=== PATIENT | female | born 1955 | race Caucasian/White ===

== ENCOUNTER 2023-03-12 08:17 | Inpatient (IN) | payer MEDICARE, MEDICAID ==
[~2023-03-12] VITALS: Ht 160 cm; Wt 68.0 kg
[~2023-03-12 08:17] MED LIST: LISI20TA28 PO; PRAV40TA3 PO
[2023-03-12] MEDS ORDERED: normal saline 1000ML IV soln IVB ONE (08:25)
[2023-03-12 09:50] LABS: BILIRUBIN,URINE NEGATIVE (Neg); CLARITY,URINE CLOUDY (Clear); COLOR,URINE YELLOW (Yellow); GLUCOSE, URINE NEGATIVE (Neg); KETONES,URINE NEGATIVE (Neg); LEUKOCYTE ESTERASE ,URINE TRACE (Neg); NITRITES, URINE POSITIVE (Neg); OCCULT BLOOD,URINE NEGATIVE (Neg); PROTEIN,URINE 30 mg/dl (Neg); UROBILINOGEN,URINE 0.2 E.U/dL (0.2-1.0)
[2023-03-12 09:52] LABS: BASOPHILS % (AUTO) 0.4 % (0-1); EOSINOPHILS % (AUTO) 0.4 % (0-6); HEMOGLOBIN 13.2 g/dl (12.0-16.0); LYMPHOCYTES # (AUTO) 0.9 X10'3 (1.1-4.8); MEAN CORPUSCULAR HEMOGLOBIN 30.7 PG (27.0-31.0); MEAN CORPUSCULAR HGB CONC 32.9 g/dL (33.0-36.5); MEAN CORPUSCULAR VOLUME 93.2 FL (78-98); MONOCYTES # (AUTO) 0.4 X10'3 (0-0.9); MONOCYTES % (AUTO) 5.5 % (2-12); NEUTROPHILS # (AUTO) 6.7 X10'3 (1.8-7.7); NEUTROPHILS % (AUTO) 82.7 % (42-75); PLATELET COUNT 379 X10'3 (140-440); WHITE BLOOD COUNT 8.1 X10'3 (4.5-11.0)
[2023-03-12 09:54] LABS: UA COLLECTION TYPE CLN CATCH MIDSTREAM
[2023-03-12 09:58] LABS: BACTERIA,URINE 4+ /HPF (Neg); RBC,URINE 0-2 /HPF (0-2); SQUAMOUS EPITHELIAL CELL,UR MODERATE /LPF (FEW); WBC CLUMPS,URINE FEW /HPF (NEGATIVE)
[2023-03-12] MEDS ORDERED: CefTRIAXone 2gm/D5W 50ml BAG 50 ML IV ONE (10:00)
[2023-03-12 10:07] LABS: ALANINE AMINOTRANSFERASE 12 U/L (12-78); ALBUMIN 2.8 G/DL (3.4-5.0); ALBUMIN/GLOBULIN RATIO 0.8 (1.1-1.5); ALKALINE PHOSPHATASE 93 IU/L (46-116); ANION GAP 8 (8-16); ASPARTATE AMINO TRANSFERASE 20 U/L (10-37); BILIRUBIN,TOTAL 0.4 MG/DL (0.1-1.0); BLOOD UREA NITROGEN 17 MG/DL (7-18); BUN/CREATININE RATIO 18.1 (10.0-20.0); CALCIUM 8.7 MG/DL (8.5-10.1); CHLORIDE 104 MMOL/L (99-107); CREATININE 0.94 MG/DL (0.40-0.90); GLUCOSE 78 MG/DL (70-104); POTASSIUM 4.2 MMOL/L (3.5-5.1); SODIUM 138 MMOL/L (135-145); TOTAL CARBON DIOXIDE 26.2 MMOL/L (24-32); TOTAL PROTEIN 6.5 G/DL (6.4-8.2); eCRCL 48 ML/MIN; eGFR 59 ML/MIN
[2023-03-12 10:13] LABS: MAGNESIUM 1.7 MG/DL (1.5-2.4); PHOSPHORUS 3.7 MG/DL (2.3-4.5); PRO BRAIN NATRIURETIC PEPTIDE 488 PG/ML (0-125)
--- NOTE | 2023-03-12 12:26 | NUR ---
Breaking primary RN .Resident rosa at bedside.
[2023-03-12] MEDS ORDERED: ondansetron/PF 4mg/2ml inj IV PRN (13:00)
[2023-03-12] MEDS ORDERED: LORazepam 1 MG tablet PO PRN (13:00)
[2023-03-12] MEDS: normal saline 1000ml 1,000 ML IV SCH (13:00)
[2023-03-12] MEDS ORDERED: haloperidol lactate 5mg/ml inj IM PRN (13:00)
[2023-03-12] MEDS ORDERED: haloperidol 5mg tablet PO PRN (13:00)
[2023-03-12] MEDS ORDERED: potassium Cl 40MEQ/1/2NS 520ml 520 ML IV PRN (13:00)
[2023-03-12] MEDS ORDERED: magnesium 2GM in 50ml NS 50 ML IV PRN (13:00)
[2023-03-12] MEDS ORDERED: dextrose 50%-water 50ml dispensing syringe IV PRN (13:00)
[2023-03-12] MEDS ORDERED: mag hydrox/Alum hydrox/simeth 30ml oral suspension PO PRN (13:00)
[2023-03-12] MEDS ORDERED: magnesium 4gm in 100ml NS 100 ML IV PRN (13:00)
[2023-03-12] MEDS: thiamine 100mg/ml 2ml inj. IV SCH ×2 (13:10→20:38)
--- NOTE | 2023-03-12 13:34 | NUR ---
I called Dr. Randhawa regarding his order for blood sugar check ACHS. I told him that patient reported she was not diabetic and that glucose chem shows normal glucose level. He agreed to have A1C level checked first before we do blood sugar monitoring.
[2023-03-12 13:45] LABS: URINE AMPHETAMINE SCREEN NEGATIVE (Neg); URINE BARBITUATE SCREEN NEGATIVE (Neg); URINE BENZODIAZEPINES SCREEN NEGATIVE (Neg); URINE CANNABINOID SCREEN POSITIVE (Neg); URINE COCAINE SCREEN NEGATIVE (Neg); URINE METHADONE SCREEN NEGATIVE (Neg); URINE OPIATE SCREEN NEGATIVE (Neg); URINE PHENCYCLIDINE SCREEN NEGATIVE (Neg)
[2023-03-12] MEDS ORDERED: NO HOME MEDS (16:06)
[2023-03-12] MEDS: folic acid 1mg/0.2ml inj IV SCH (18:03)
[2023-03-12] MEDS: LORazepam 2 mg/ml vial IV PRN (18:03)
[2023-03-12] MEDS: docusate sod 100mg capsule PO SCH (20:00)
[2023-03-12] MEDS: K and/or MAG REPLACEMENT MC SCH (20:00)
[2023-03-12 21:30] VITALS: BP 153/83; PULSE 66; RESP 20; TEMP 97.6; O2SAT 94
[2023-03-13] VITALS (7 sets, daily range): BP systolic 135–160; BP diastolic 66–86; PULSE 65–102; RESP 16–20; TEMP 98.1–99.2; O2SAT 93–98
[2023-03-13] MEDS: normal saline 1000ml 1,000 ML IV SCH ×2 (02:20→15:45)
[2023-03-13 05:38] LABS: BASOPHILS % (AUTO) 0.6 % (0-1); EOSINOPHILS # (AUTO) 0.1 X10'3 (0-0.9); EOSINOPHILS % (AUTO) 1.1 % (0-6); LYMPHOCYTES # (AUTO) 1.2 X10'3 (1.1-4.8); LYMPHOCYTES % (AUTO) 19.9 % (21-51); MEAN CORPUSCULAR HEMOGLOBIN 31.2 PG (27.0-31.0); MEAN CORPUSCULAR HGB CONC 33.5 g/dL (33.0-36.5); MEAN CORPUSCULAR VOLUME 93.2 FL (78-98); MEAN PLATELET VOLUME 6.9 FL (7.4-10.4); MONOCYTES # (AUTO) 0.4 X10'3 (0-0.9); MONOCYTES % (AUTO) 6.2 % (2-12); NEUTROPHILS # (AUTO) 4.5 X10'3 (1.8-7.7); NEUTROPHILS % (AUTO) 72.2 % (42-75); PLATELET COUNT 354 X10'3 (140-440); RED BLOOD COUNT 3.86 X10'6 (4.20-5.60); WHITE BLOOD COUNT 6.3 X10'3 (4.5-11.0)
[2023-03-13 06:15] LABS: ALANINE AMINOTRANSFERASE 6 U/L (12-78); ALBUMIN 2.6 G/DL (3.4-5.0); ALBUMIN/GLOBULIN RATIO 0.8 (1.1-1.5); ALKALINE PHOSPHATASE 86 IU/L (46-116); ANION GAP 10 (8-16); ASPARTATE AMINO TRANSFERASE 20 U/L (10-37); BILIRUBIN,TOTAL 0.6 MG/DL (0.1-1.0); BLOOD UREA NITROGEN 18 MG/DL (7-18); BUN/CREATININE RATIO 19.1 (10.0-20.0); CALCIUM 8.9 MG/DL (8.5-10.1); CHLORIDE 104 MMOL/L (99-107); CREATININE 0.94 MG/DL (0.40-0.90); GLUCOSE 65 MG/DL (70-104); SODIUM 139 MMOL/L (135-145); TOTAL CARBON DIOXIDE 24.8 MMOL/L (24-32); TOTAL PROTEIN 5.8 G/DL (6.4-8.2); eCRCL 48 ML/MIN; eGFR 59 ML/MIN
--- NOTE | 2023-03-13 06:23 | NUR ---
Problems reprioritized. Patient report given, questions answered & plan of care reviewed with Cecily LOMBARDO. Addendum: 03/13/23 at 0623 by Yarely North RN Amended: Links added.
--- NOTE | 2023-03-13 06:25 | NUR ---
I have received report from DESTINEE Pritchett and had the opportunity to ask questions and assume patient care. No distress at this time.
[2023-03-13] MEDS: docusate sod 100mg capsule PO SCH ×2 (07:52→20:00)
[2023-03-13] MEDS: multivitamins, therapeutics tablet PO SCH (07:52)
[2023-03-13] MEDS: K and/or MAG REPLACEMENT MC SCH ×2 (07:53→20:00)
[2023-03-13] MEDS: folic acid 1mg/0.2ml inj IV SCH (08:00)
[2023-03-13] MEDS: thiamine 100mg/ml 2ml inj. IV SCH ×2 (08:01→13:45)
[2023-03-13] MEDS: CefTRIAXone 2gm/D5W 50ml BAG 50 ML IV SCH (08:01)
--- NOTE | 2023-03-13 08:08 | NUR ---
PAGER ID: [phone] MESSAGE: Cecily [email or web address]: Patient in rm 4013 B: Benita Mon, jimi we please put a diet order in. (80 character message out of a maximum of 240)
[2023-03-13] MEDS: LORazepam 2 mg/ml vial IV PRN (12:33)
--- NOTE | 2023-03-13 18:28 | NUR ---
Problems reprioritized. Patient report given, questions answered & plan of care reviewed with DESTINEE Gill. No distress at this time.
[2023-03-13] MEDS ORDERED: iohexol 300mg/ml 100ml inj. ONE (20:17)
[2023-03-13] MEDS: heparin, porcine 5000 units/ml vial SQ SCH (20:25)
[2023-03-14] MEDS: normal saline 1000ml 1,000 ML IV SCH ×2 (05:00→21:08)
[2023-03-14 05:53] LABS: BASOPHILS % (AUTO) 0.8 % (0-1); EOSINOPHILS # (AUTO) 0.2 X10'3 (0-0.9); EOSINOPHILS % (AUTO) 2.8 % (0-6); HEMATOCRIT 38.1 % (35.0-45.0); HEMOGLOBIN 12.8 g/dl (12.0-16.0); LYMPHOCYTES # (AUTO) 1.6 X10'3 (1.1-4.8); LYMPHOCYTES % (AUTO) 26.2 % (21-51); MEAN CORPUSCULAR HEMOGLOBIN 31.2 PG (27.0-31.0); MEAN CORPUSCULAR HGB CONC 33.5 g/dL (33.0-36.5); MEAN PLATELET VOLUME 7.7 FL (7.4-10.4); MONOCYTES # (AUTO) 0.5 X10'3 (0-0.9); MONOCYTES % (AUTO) 8.6 % (2-12); NEUTROPHILS # (AUTO) 3.8 X10'3 (1.8-7.7); NEUTROPHILS % (AUTO) 61.6 % (42-75); PLATELET COUNT 357 X10'3 (140-440); RED BLOOD COUNT 4.09 X10'6 (4.20-5.60); WHITE BLOOD COUNT 6.2 X10'3 (4.5-11.0)
[2023-03-14 06:00] VITALS: BP 153/82; PULSE 83; RESP 18; TEMP 98.7
--- NOTE | 2023-03-14 06:20 | NUR ---
Problems reprioritized. Patient report given, questions answered & plan of care reviewed with GRUPO CATALAN.
--- NOTE | 2023-03-14 06:28 | NUR ---
I have received report from DESTINEE Gill and had the opportunity to ask questions and assume patient care. No distress at this time.
[2023-03-14 06:36] LABS: ALANINE AMINOTRANSFERASE 10 U/L (12-78); ALBUMIN 2.7 G/DL (3.4-5.0); ALBUMIN/GLOBULIN RATIO 0.8 (1.1-1.5); ALKALINE PHOSPHATASE 87 IU/L (46-116); ANION GAP 10 (8-16); ASPARTATE AMINO TRANSFERASE 19 U/L (10-37); BILIRUBIN,TOTAL 0.5 MG/DL (0.1-1.0); BLOOD UREA NITROGEN 21 MG/DL (7-18); BUN/CREATININE RATIO 21.9 (10.0-20.0); CALCIUM 8.7 MG/DL (8.5-10.1); CHLORIDE 103 MMOL/L (99-107); CREATININE 0.96 MG/DL (0.40-0.90); GLUCOSE 84 MG/DL (70-104); POTASSIUM 3.9 MMOL/L (3.5-5.1); SODIUM 136 MMOL/L (135-145); TOTAL CARBON DIOXIDE 23.5 MMOL/L (24-32); TOTAL PROTEIN 6.2 G/DL (6.4-8.2); eCRCL 47 ML/MIN; eGFR 58 ML/MIN
[2023-03-14] MEDS: K and/or MAG REPLACEMENT MC SCH ×2 (07:37→20:00)
[2023-03-14] MEDS: multivitamins, therapeutics tablet PO SCH (07:38)
[2023-03-14] MEDS: docusate sod 100mg capsule PO SCH ×2 (07:38→20:00)
[2023-03-14] MEDS: heparin, porcine 5000 units/ml vial SQ SCH ×2 (07:38→20:59)
[2023-03-14 08:00] VITALS: RESP 16; O2SAT 96
[2023-03-14] MEDS: CefTRIAXone 2gm/D5W 50ml BAG 50 ML IV SCH (09:24)
[2023-03-14] MEDS: acetaminophen 325mg tablet PO PRN ×2 (14:38→21:04)
--- NOTE | 2023-03-14 16:00 | NUR ---
I have reviewed and agree with all interventions, assessments performed and documentation by GRUPO Tony.
--- NOTE | 2023-03-14 16:35 | NUR ---
D/c'd BS checks per Resident. Patient is eating and tolerating diet good. No w/d Sx.
[2023-03-14 18:00] VITALS: BP 160/99; PULSE 74; RESP 15; TEMP 98.1; O2SAT 95
--- NOTE | 2023-03-14 18:09 | NUR ---
Problems reprioritized. Patient report given, questions answered & plan of care reviewed with DESTINEE Prater. No distress at this time.
[2023-03-14 20:00] VITALS: RESP 15; O2SAT 95
[2023-03-14 22:00] VITALS: BP 163/94; PULSE 69; RESP 18; TEMP 98.3; O2SAT 94
[2023-03-15] MEDS: normal saline 1000ml 1,000 ML IV SCH ×2 (05:45→21:10)
--- NOTE | 2023-03-15 06:30 | NUR ---
Patient in room ORTHO 4013. I have received report from Bridget FELIPE and had the opportunity to ask questions and assume patient care.
--- NOTE | 2023-03-15 06:33 | NUR ---
Problems reprioritized. Patient report given, questions answered & plan of care reviewed with torrie gordon.
[2023-03-15 07:10] LABS: BASOPHILS # (AUTO) 0.1 X10'3 (0-0.2); BASOPHILS % (AUTO) 0.9 % (0-1); EOSINOPHILS # (AUTO) 0.2 X10'3 (0-0.9); EOSINOPHILS % (AUTO) 2.8 % (0-6); HEMATOCRIT 38.9 % (35.0-45.0); LYMPHOCYTES # (AUTO) 1.1 X10'3 (1.1-4.8); LYMPHOCYTES % (AUTO) 19.5 % (21-51); MEAN CORPUSCULAR HEMOGLOBIN 31.1 PG (27.0-31.0); MEAN CORPUSCULAR HGB CONC 33.6 g/dL (33.0-36.5); MEAN CORPUSCULAR VOLUME 92.7 FL (78-98); MEAN PLATELET VOLUME 7.9 FL (7.4-10.4); MONOCYTES # (AUTO) 0.4 X10'3 (0-0.9); MONOCYTES % (AUTO) 7.8 % (2-12); NEUTROPHILS # (AUTO) 3.8 X10'3 (1.8-7.7); PLATELET COUNT 342 X10'3 (140-440); RED BLOOD COUNT 4.19 X10'6 (4.20-5.60); RED CELL DISTRIBUTION WIDTH 14.7 % (11.5-14.5); WHITE BLOOD COUNT 5.5 X10'3 (4.5-11.0)
[2023-03-15] MEDS: multivitamins, therapeutics tablet PO SCH (07:56)
[2023-03-15] MEDS: heparin, porcine 5000 units/ml vial SQ SCH ×2 (07:57→20:18)
[2023-03-15] MEDS: docusate sod 100mg capsule PO SCH ×2 (07:58→20:00)
[2023-03-15 08:12] LABS: ALANINE AMINOTRANSFERASE 12 U/L (12-78); ALBUMIN 2.8 G/DL (3.4-5.0); ALBUMIN/GLOBULIN RATIO 0.7 (1.1-1.5); ALKALINE PHOSPHATASE 89 IU/L (46-116); ANION GAP 9 (8-16); ASPARTATE AMINO TRANSFERASE 20 U/L (10-37); BILIRUBIN,TOTAL 0.5 MG/DL (0.1-1.0); BLOOD UREA NITROGEN 14 MG/DL (7-18); BUN/CREATININE RATIO 16.1 (10.0-20.0); CALCIUM 8.9 MG/DL (8.5-10.1); CHLORIDE 102 MMOL/L (99-107); CREATININE 0.87 MG/DL (0.40-0.90); GLUCOSE 95 MG/DL (70-104); POTASSIUM 3.9 MMOL/L (3.5-5.1); SODIUM 136 MMOL/L (135-145); TOTAL CARBON DIOXIDE 25.3 MMOL/L (24-32); TOTAL PROTEIN 6.6 G/DL (6.4-8.2); eCRCL 52 ML/MIN; eGFR 65 ML/MIN
[2023-03-15 08:30] VITALS: RESP 18
--- NOTE | 2023-03-15 08:30 | NUR ---
An assessment has been performed and completed by this RN per policy instated by this [facility], [facility]. All po meds administered by MARINE DIESEL MECHANIC. Plan of care will be completed by MARINE DIESEL MECHANIC. RN available for review and assistance when needed/required. Assignment by NOC Nursing Program Coordinator RN and Automation Design Engineer RN.This RN has own 5:1 patient assignment.
[2023-03-15] MEDS: CefTRIAXone 2gm/D5W 50ml BAG 50 ML IV SCH (08:42)
[2023-03-15 10:00] VITALS: BP 173/112; PULSE 77; RESP 16; TEMP 98; O2SAT 96
[2023-03-15 10:15] VITALS: BP 190/110
[2023-03-15 10:31] LABS: CHOL/HDL RATIO 3.6 (0.00-4.99); CHOLESTEROL 198 MG/DL (0-200); CREATINE KINASE 108 U/L (26-192); HDL CHOLESTEROL 55 MG/DL (35-60); LDL CHOLESTEROL 113 MG/DL (50-100); TRIGLYCERIDES 119 MG/DL (20-135)
[2023-03-15] MEDS ORDERED: lisinopril 20mg tablet PO ONE (11:30)
[2023-03-15 14:00] VITALS: BP 138/74
--- NOTE | 2023-03-15 16:53 | NUR ---
Neuro consult ordered and Blue noa paged, camera in patient room
--- NOTE | 2023-03-15 17:04 | NUR ---
PAGER ID: [phone] MESSAGE: [id number]- Stu Mon- Neurologist Dr. Paris wants to talk to you. pls call or text. [phone] evan [phone]
[2023-03-15] MEDS: acetaminophen 325mg tablet PO PRN (17:07)
--- NOTE | 2023-03-15 17:13 | NUR ---
PAGER ID: [phone] MESSAGE: [id number]- Fran Mon pls call me regarding this patient @ [phone] Vikki
--- NOTE | 2023-03-15 17:18 | NUR ---
Dr. Brown called back and stated that she spoke with the neurologist Dr. Paris already. He is going to evaluate patient and write a note.
--- NOTE | 2023-03-15 19:08 | NUR ---
Problems reprioritized. Patient report given, questions answered & plan of care reviewed with Bridget FELIPE.
[2023-03-15 20:00] VITALS: RESP 15; O2SAT 97
[2023-03-15] MEDS: K and/or MAG REPLACEMENT MC SCH (20:00)
[2023-03-15] MEDS: pravastatin 40mg tablet PO SCH (20:19)
[2023-03-16] VITALS (10 sets, daily range): BP systolic 128–174; BP diastolic 84–108; PULSE 61–93; RESP 14–20; TEMP 97–98.3; O2SAT 94–97
[2023-03-16] MEDS: temazepam 15mg capsule PO PRN ×2 (00:51→23:27)
--- NOTE | 2023-03-16 06:08 | NUR ---
Problems reprioritized. Patient report given, questions answered & plan of care reviewed with torrie Amato.
[2023-03-16 06:22] LABS: BASOPHILS % (AUTO) 0.7 % (0-1); EOSINOPHILS # (AUTO) 0.2 X10'3 (0-0.9); EOSINOPHILS % (AUTO) 3.4 % (0-6); HEMATOCRIT 35.7 % (35.0-45.0); HEMOGLOBIN 12.1 g/dl (12.0-16.0); LYMPHOCYTES # (AUTO) 1.5 X10'3 (1.1-4.8); LYMPHOCYTES % (AUTO) 27.5 % (21-51); MEAN CORPUSCULAR HEMOGLOBIN 31.4 PG (27.0-31.0); MEAN CORPUSCULAR HGB CONC 33.9 g/dL (33.0-36.5); MEAN CORPUSCULAR VOLUME 92.9 FL (78-98); MONOCYTES # (AUTO) 0.5 X10'3 (0-0.9); MONOCYTES % (AUTO) 8.3 % (2-12); NEUTROPHILS # (AUTO) 3.3 X10'3 (1.8-7.7); NEUTROPHILS % (AUTO) 60.1 % (42-75); PLATELET COUNT 308 X10'3 (140-440); RED BLOOD COUNT 3.84 X10'6 (4.20-5.60); RED CELL DISTRIBUTION WIDTH 14.8 % (11.5-14.5); WHITE BLOOD COUNT 5.4 X10'3 (4.5-11.0)
[2023-03-16 06:25] LABS: ALANINE AMINOTRANSFERASE 6 U/L (12-78); ALBUMIN 2.6 G/DL (3.4-5.0); ALBUMIN/GLOBULIN RATIO 0.8 (1.1-1.5); ALKALINE PHOSPHATASE 80 IU/L (46-116); ANION GAP 9 (8-16); ASPARTATE AMINO TRANSFERASE 20 U/L (10-37); BILIRUBIN,TOTAL 0.3 MG/DL (0.1-1.0); BLOOD UREA NITROGEN 13 MG/DL (7-18); BUN/CREATININE RATIO 18.6 (10.0-20.0); CALCIUM 8.8 MG/DL (8.5-10.1); CHLORIDE 104 MMOL/L (99-107); GLUCOSE 84 MG/DL (70-104); SODIUM 138 MMOL/L (135-145); TOTAL CARBON DIOXIDE 24.8 MMOL/L (24-32); TOTAL PROTEIN 5.9 G/DL (6.4-8.2); eCRCL 65 ML/MIN; eGFR 83 ML/MIN
[2023-03-16] MEDS: K and/or MAG REPLACEMENT MC SCH ×2 (07:29→20:00)
[2023-03-16] MEDS: CefTRIAXone 2gm/D5W 50ml BAG 50 ML IV SCH (07:33)
[2023-03-16] MEDS: multivitamins, therapeutics tablet PO SCH ×2 (07:34→19:32)
[2023-03-16] MEDS: lisinopril 20mg tablet PO SCH (07:34)
[2023-03-16] MEDS: heparin, porcine 5000 units/ml vial SQ SCH ×2 (07:35→19:34)
[2023-03-16] MEDS: docusate sod 100mg capsule PO SCH ×2 (07:35→20:00)
[2023-03-16] MEDS: acetaminophen 325mg tablet PO PRN (08:42)
--- NOTE | 2023-03-16 09:00 | NUR ---
All primary care of patient has been turned over to her Primary VALUE STREAM MANAGER, I am available if VALUE STREAM MANAGER needs assistance and asks.
--- NOTE | 2023-03-16 11:33 | NUR ---
BP elevated, notified, new orders for metoprolol daily.
[2023-03-16] MEDS: metoprolol tartrate 50mg tablet PO SCH (11:40)
[2023-03-16] MEDS: normal saline 1000ml 1,000 ML IV SCH ×2 (12:11→23:25)
[2023-03-16] MEDS ORDERED: folic acid 1mg tablet PO SCH (18:55)
[2023-03-16] MEDS ORDERED: thiamine 100mg tablet PO SCH (18:55)
[2023-03-16] MEDS ORDERED: LORazepam 2 mg/ml vial IV PRN (18:55)
[2023-03-16] MEDS ORDERED: haloperidol lactate 5mg/ml inj IM PRN (18:55)
[2023-03-16] MEDS ORDERED: dextrose 50%-water 50ml dispensing syringe IV PRN (18:55)
[2023-03-16] MEDS ORDERED: haloperidol 5mg tablet PO PRN (18:55)
[2023-03-16] MEDS: LORazepam 1 MG tablet PO PRN (19:34)
[2023-03-16] MEDS: pravastatin 40mg tablet PO SCH (23:27)
[2023-03-17] VITALS (10 sets, daily range): BP systolic 137–167; BP diastolic 80–110; PULSE 60–89; RESP 14–17; TEMP 97.6–98.6; O2SAT 91–98
--- NOTE | 2023-03-17 00:51 | NUR ---
watched pt transfer from bsc to bed. noted pt had decreased control of limbs, seems to "flop" them. states tingling "hot lightning" goes to mid dexter on bilateral legs. able to use hands to assist with legs getting onto bed.
--- NOTE | 2023-03-17 06:14 | NUR ---
reported to days. noted pt anticipates discharge to rehab. no labs drawn yet. noted new BP meds.
--- NOTE | 2023-03-17 06:44 | NUR ---
Patient in room ORTHO 4013. I have received report from DESTINEE Ball and had the opportunity to ask questions and assume patient care.
[2023-03-17] MEDS: K and/or MAG REPLACEMENT MC SCH ×2 (08:00→20:00)
[2023-03-17] MEDS: nicotine 14mg patch - 24hr TD SCH (08:00)
[2023-03-17] MEDS: docusate sod 100mg capsule PO SCH ×2 (08:00→20:00)
[2023-03-17] MEDS: folic acid 1mg tablet PO SCH (08:20)
[2023-03-17] MEDS: metoprolol tartrate 50mg tablet PO SCH (08:21)
[2023-03-17] MEDS: multivitamins, therapeutics tablet PO SCH (08:21)
[2023-03-17] MEDS: heparin, porcine 5000 units/ml vial SQ SCH ×2 (08:22→21:03)
[2023-03-17] MEDS: lisinopril 20mg tablet PO SCH (08:22)
[2023-03-17] MEDS: thiamine 100mg tablet PO SCH (08:22)
[2023-03-17 09:29] LABS: BASOPHILS % (AUTO) 0.5 % (0-1); EOSINOPHILS # (AUTO) 0.2 X10'3 (0-0.9); EOSINOPHILS % (AUTO) 3.1 % (0-6); HEMATOCRIT 37.2 % (35.0-45.0); HEMOGLOBIN 12.6 g/dl (12.0-16.0); LYMPHOCYTES # (AUTO) 1.3 X10'3 (1.1-4.8); LYMPHOCYTES % (AUTO) 21.1 % (21-51); MEAN CORPUSCULAR HEMOGLOBIN 31.4 PG (27.0-31.0); MEAN CORPUSCULAR HGB CONC 33.8 g/dL (33.0-36.5); MEAN CORPUSCULAR VOLUME 92.9 FL (78-98); MEAN PLATELET VOLUME 8.4 FL (7.4-10.4); MONOCYTES # (AUTO) 0.5 X10'3 (0-0.9); MONOCYTES % (AUTO) 8.1 % (2-12); NEUTROPHILS # (AUTO) 4.2 X10'3 (1.8-7.7); NEUTROPHILS % (AUTO) 67.2 % (42-75); PLATELET COUNT 314 X10'3 (140-440); RED CELL DISTRIBUTION WIDTH 14.5 % (11.5-14.5); WHITE BLOOD COUNT 6.3 X10'3 (4.5-11.0)
[2023-03-17 09:57] LABS: ALANINE AMINOTRANSFERASE 11 U/L (12-78); ALBUMIN 2.7 G/DL (3.4-5.0); ALBUMIN/GLOBULIN RATIO 0.7 (1.1-1.5); ALKALINE PHOSPHATASE 83 IU/L (46-116); ANION GAP 9 (8-16); ASPARTATE AMINO TRANSFERASE 17 U/L (10-37); BILIRUBIN,TOTAL 0.4 MG/DL (0.1-1.0); BLOOD UREA NITROGEN 14 MG/DL (7-18); BUN/CREATININE RATIO 17.7 (10.0-20.0); CALCIUM 8.8 MG/DL (8.5-10.1); CHLORIDE 103 MMOL/L (99-107); CREATININE 0.79 MG/DL (0.40-0.90); GLUCOSE 78 MG/DL (70-104); POTASSIUM 4.1 MMOL/L (3.5-5.1); SODIUM 136 MMOL/L (135-145); TOTAL CARBON DIOXIDE 24.4 MMOL/L (24-32); TOTAL PROTEIN 6.4 G/DL (6.4-8.2); eCRCL 57 ML/MIN; eGFR 73 ML/MIN
[2023-03-17] MEDS: CefTRIAXone 2gm/D5W 50ml BAG 50 ML IV SCH (10:27)
--- NOTE | 2023-03-17 11:21 | NUR ---
Initial: Pt DX generalized weakness and focal limbs numbness and weakness per EMR. Pt continues on a regular diet with average PO intake ~40%x 10 meals which met ~59% of estimated kcal needs and ~65% of estimated protein needs. Per EMR pt may discharge today; if pt does not discharge recommend Ensure Enlive BIDWM to help better meet estimated needs. LBM on 03/16 and refusing routine bowel care per EMR. Will continue to monitor and make recommendations as appropriate. Recommendations: 1.regular diet 2. if pt doesn't discharge today 03/17, Ensure Enlive BIDWM to better meet estimated needs 3.routine bowel care 4.weekly scaled wts Addendum: 03/17/23 at [address] Amended: Links added.
[2023-03-17] MEDS: normal saline 1000ml 1,000 ML IV SCH (13:00)
[2023-03-17] MEDS: LORazepam 1 MG tablet PO PRN ×2 (14:37→21:13)
--- NOTE | 2023-03-17 16:10 | NUR ---
Charting by Karl WERNER reviewed by Misael Slade RN
--- NOTE | 2023-03-17 16:19 | NUR ---
OTOLARYNGOLOGY SURGEON documentation: I have reviewed and agree with all interventions, assessments performed and documented by GRUPO Tracy.
[2023-03-17] MEDS: pravastatin 40mg tablet PO SCH (21:01)
[2023-03-18] MEDS: normal saline 1000ml 1,000 ML IV SCH (02:20)
--- NOTE | 2023-03-18 05:20 | NUR ---
Pt BP 160/84, HR 67. No complaint of chest pain. MD notified. No new orders at this time
[2023-03-18] MEDS: acetaminophen 325mg tablet PO PRN (05:38)
[2023-03-18 06:00] VITALS: BP 160/84; PULSE 67; RESP 16; TEMP 97.6; O2SAT 95
--- NOTE | 2023-03-18 06:16 | NUR ---
Report to Lima LOMBARDO
[2023-03-18 06:55] LABS: BASOPHILS # (AUTO) 0.1 X10'3 (0-0.2); BASOPHILS % (AUTO) 0.9 % (0-1); EOSINOPHILS # (AUTO) 0.2 X10'3 (0-0.9); EOSINOPHILS % (AUTO) 1.9 % (0-6); HEMOGLOBIN 11.8 g/dl (12.0-16.0); LYMPHOCYTES # (AUTO) 1.2 X10'3 (1.1-4.8); LYMPHOCYTES % (AUTO) 12.5 % (21-51); MEAN CORPUSCULAR HEMOGLOBIN 31.3 PG (27.0-31.0); MEAN CORPUSCULAR HGB CONC 33.8 g/dL (33.0-36.5); MEAN CORPUSCULAR VOLUME 92.8 FL (78-98); MEAN PLATELET VOLUME 8.2 FL (7.4-10.4); MONOCYTES # (AUTO) 0.7 X10'3 (0-0.9); MONOCYTES % (AUTO) 7.8 % (2-12); NEUTROPHILS # (AUTO) 7.2 X10'3 (1.8-7.7); NEUTROPHILS % (AUTO) 76.9 % (42-75); PLATELET COUNT 285 X10'3 (140-440); RED BLOOD COUNT 3.77 X10'6 (4.20-5.60); RED CELL DISTRIBUTION WIDTH 15.2 % (11.5-14.5); WHITE BLOOD COUNT 9.4 X10'3 (4.5-11.0)
[2023-03-18 07:02] LABS: ALANINE AMINOTRANSFERASE 10 U/L (12-78); ALBUMIN 2.4 G/DL (3.4-5.0); ALBUMIN/GLOBULIN RATIO 0.7 (1.1-1.5); ALKALINE PHOSPHATASE 79 IU/L (46-116); ANION GAP 7 (8-16); ASPARTATE AMINO TRANSFERASE 12 U/L (10-37); BILIRUBIN,TOTAL 0.4 MG/DL (0.1-1.0); BLOOD UREA NITROGEN 21 MG/DL (7-18); BUN/CREATININE RATIO 21.2 (10.0-20.0); CALCIUM 8.5 MG/DL (8.5-10.1); CHLORIDE 103 MMOL/L (99-107); CREATININE 0.99 MG/DL (0.40-0.90); GLUCOSE 91 MG/DL (70-104); SODIUM 134 MMOL/L (135-145); TOTAL CARBON DIOXIDE 23.7 MMOL/L (24-32); TOTAL PROTEIN 5.7 G/DL (6.4-8.2); eCRCL 46 ML/MIN; eGFR 56 ML/MIN
[2023-03-18] MEDS: CefTRIAXone 2gm/D5W 50ml BAG 50 ML IV SCH (07:11)
[2023-03-18] MEDS: K and/or MAG REPLACEMENT MC SCH (07:51)
[2023-03-18] MEDS: nicotine 14mg patch - 24hr TD SCH (07:53)
[2023-03-18] MEDS: folic acid 1mg tablet PO SCH (07:53)
[2023-03-18] MEDS: heparin, porcine 5000 units/ml vial SQ SCH (07:53)
[2023-03-18] MEDS: multivitamins, therapeutics tablet PO SCH (07:53)
[2023-03-18] MEDS: thiamine 100mg tablet PO SCH (07:53)
[2023-03-18] MEDS: metoprolol tartrate 50mg tablet PO SCH (07:54)
[2023-03-18 07:59] VITALS: BP_SYST 160; PULSE 67
[2023-03-18] MEDS: lisinopril 20mg tablet PO SCH (07:59)
[2023-03-18] MEDS: docusate sod 100mg capsule PO SCH (07:59)
[2023-03-18 08:00] VITALS: RESP 16; O2SAT 95
--- NOTE | 2023-03-18 10:30 | NUR ---
CORE STACKER documentation: I have reviewed and agree with all interventions, assessments performed and documented by GRUPO Amato.
--- NOTE | 2023-03-18 11:16 | NUR ---
Report given to Medina at [facility], questions answered. Pt stable an appropriate at this time.
--- NOTE | 2023-03-18 11:45 | NUR ---
Patient transported to [facility] via [facility]. Personal belongings sent with. PIV was discontinued with tip intact, tolerated well. Patient alert and appropriate at the time of discharge.
== END 2023-03-18 11:45 | DRG 689 ==
LOC: ER 08:17 → ED HOLD 13:04 → ORTHO 4S 20:15
PROVIDERS: ADMIT Internal Medicine; ATTEND Family Medicine
PROC: BW211ZZ Computerized Tomography (CT Scan) of Abdomen and Pelvis using Low Osmolar Contrast (ICD-10-PCS; principal; 2023-03-13)
DX: N39.0 Urinary tract infection, site not specified (principal); I71.012 Dissection of descending thoracic aorta; F32.A Depression, unspecified; E78.00 Pure hypercholesterolemia, unspecified; F17.210 Nicotine dependence, cigarettes, uncomplicated; N18.2 Chronic kidney disease, stage 2 (mild); I71.43 Infrarenal abdominal aortic aneurysm, without rupture; M21.962 Unspecified acquired deformity of left lower leg; R20.2 Paresthesia of skin; R59.0 Localized enlarged lymph nodes; I70.0 Atherosclerosis of aorta; D49.0 Neoplasm of unspecified behavior of digestive system; N94.89 Other specified conditions associated with female genital organs and menstrual cycle; N83.202 Unspecified ovarian cyst, left side; F10.20 Alcohol dependence, uncomplicated; K57.30 Diverticulosis of large intestine without perforation or abscess without bleeding; R20.0 Anesthesia of skin; I12.9 Hypertensive chronic kidney disease with stage 1 through stage 4 chronic kidney disease, or unspecified chronic kidney disease; B96.20 Unspecified Escherichia coli [E. coli] as the cause of diseases classified elsewhere; M17.0 Bilateral primary osteoarthritis of knee; Z98.891 History of uterine scar from previous surgery; Z71.6 Tobacco abuse counseling
CPT/HCPCS: 36415; 70450; 71045; 73564; 74177; 80053; 80061; 80305; 81001; 82550; 82607; 82948; 83036; 83735; 83880; 84100; 84443; 84484; 85025; 86592; 87077; 87081; 87088; 87186; 97110; 97116; 97162; 97530; 99285; A6258; G0378; J0696; J1644; J2060; J3411; J3490; J7030; Q9967